=== PATIENT | female | born 1950 | race Caucasian/White ===

== ENCOUNTER 2021-04-12 11:44 | Emergency (ER) | payer MEDICARE, OTHER ==
[~2021-04-12] VITALS: Ht 165.1 cm; Wt 72.6 kg
--- NOTE | 2021-04-12 12:01 | NUR ---
Dr Iverson at the bedside
--- NOTE | 2021-04-12 12:01 | NUR ---
The patient bibs for slipped and fell in restaurant yesterday. The patient c/o R face and R knee. Rates both pains 6/10. Will continue to monitor the patient.
--- NOTE | 2021-04-12 12:13 | NUR ---
THE PATIENT IS TAKEN TO CT
--- NOTE | 2021-04-12 12:18 | NUR ---
THE PATIENT IS BACK FROM CT
[2021-04-12] MEDS ORDERED: NAPR-1009 PO (12:47)
[2021-04-12 12:54] VITALS: BP 141/87
--- NOTE | 2021-04-12 12:54 | NUR ---
Patient discharged to home in stable condition. Written and verbal after care instructions given. Patient verbalizes understanding of instruction.
== END 2021-04-12 12:54 | disposition home or self-care (01) ==
LOC: ER 11:51
DX: S00.83XA Contusion of other part of head, initial encounter (principal); S80.01XA Contusion of right knee, initial encounter; Z79.899 Other long term (current) drug therapy; W01.0XXA Fall on same level from slipping, tripping and stumbling without subsequent striking against object, initial encounter; Y93.89 Activity, other specified; Y92.511 Restaurant or cafe as the place of occurrence of the external cause; Y99.8 Other external cause status
CPT/HCPCS: 70450-TC; 73564-TC

== ENCOUNTER 2022-09-14 09:41 | Emergency (ER) | payer MEDICARE, OTHER ==
[~2022-09-14] VITALS: Ht 165.1 cm; Wt 72.6 kg
[~2022-09-14 09:41] MED LIST: NAPR-1009 PO
--- NOTE | 2022-09-14 09:57 | NUR ---
PT WALKED INTO ER C/O SOB FROM COUGH AND CONGESTION X 1 WEEK. PT ADMITS TO FINISHING ANTIBIOTICS YESTERDAY BUT NO RELIEF. INSPIRATORY WHEEZING ON ALL LUNG WATERS AUSCULTATED. PT O2 SAT 94% ON ROOM AIR. PT IS COUGHING BUT ABLE TO SPEAK IN FULL SENTENCES. AT BEDSIDE. CONNECTED TO MONITOR. AAOX4. AWAITING MD ORDERS. SAFETY PRECAUTIONS IN PLACE.
[2022-09-14] MEDS ORDERED: predniSONE 20 MG TABLET ONE ×2 (10:52→10:59)
--- NOTE | 2022-09-14 10:59 | NUR ---
covid swab taken
[2022-09-14] MEDS ORDERED: IPRATROPIUM NEB FS 0.5 MG/2.5 ML AMPUL.NEB NEB ONE (11:00)
[2022-09-14] MEDS ORDERED: ALBUTEROL FS 2.5 MG/3 ML VIAL.NEB NEB ONE ×2 (11:00→13:00)
[2022-09-14] MEDS ORDERED: predniSONE 20 MG TABLET PO ONE (11:00)
--- NOTE | 2022-09-14 11:00 | NUR ---
medicated as order
[2022-09-14] MEDS ORDERED: ALBUTEROL FS 2.5 MG/3 ML VIAL.NEB ONE ×2 (11:11→13:16)
[2022-09-14] MEDS ORDERED: IPRATROPIUM NEB FS 0.5 MG/2.5 ML AMPUL.NEB ONE (11:11)
[2022-09-14] MEDS ORDERED: PRED50TA PO (13:45)
[2022-09-14] MEDS ORDERED: ALBU18HF2 INH (13:45)
[2022-09-14 14:19] VITALS: BP 123/73
== END 2022-09-14 13:55 | disposition home or self-care (01) ==
LOC: ER 09:43
DX: J45.901 Unspecified asthma with (acute) exacerbation (principal); R09.81 Nasal congestion; Z20.822 Contact with and (suspected) exposure to COVID-19; Z79.51 Long term (current) use of inhaled steroids; Z79.899 Other long term (current) drug therapy
CPT/HCPCS: 99285; 71045; 87426; 94799; 94640; J7512; C9803

== ENCOUNTER 2023-03-06 13:10 | Emergency (ER) | payer MEDICARE, OTHER ==
[~2023-03-06] VITALS: Ht 165.1 cm; Wt 66.2 kg
[~2023-03-06 13:10] MED LIST changes: +ALBU18HF2 INH; +PRED50TA PO
[2023-03-06] MEDS ORDERED: IBUP-1955 PO (14:51)
[2023-03-06] MEDS ORDERED: IBUPROFEN 600 MG TABLET PO ONE (15:00)
[2023-03-06] MEDS ORDERED: IBUPROFEN 600 MG TABLET ONE (15:13)
[2023-03-06 15:32] VITALS: BP 117/89; TEMP 98.9; O2SAT 98
== END 2023-03-06 15:32 | disposition home or self-care (01) ==
LOC: ER 13:13
DX: S90.01XA Contusion of right ankle, initial encounter (principal); S80.212A Abrasion, left knee, initial encounter; Z79.899 Other long term (current) drug therapy; W01.0XXA Fall on same level from slipping, tripping and stumbling without subsequent striking against object, initial encounter; Y93.89 Activity, other specified; Y92.89 Other specified places as the place of occurrence of the external cause; Y99.8 Other external cause status
CPT/HCPCS: 73564-TC; 73610-TC